=== PATIENT | male | born 1975 | race Caucasian/White ===

== ENCOUNTER 2019-01-02 00:01 | Emergency (ER) | payer BC ==
[~2019-01-02] VITALS: Ht 188 cm; Wt 81.6 kg
--- NOTE | 2019-01-02 00:15 | NUR ---
PT RECEIVED FROM HOME C/O EPIGASTRIC PN FOR 3DAYS DENIES NVD, DENIES FEVER/CHILLS, DENIES HEADACHES, ABLE TO SPEAK CLEAR AND COMPLETE SENTENCES DENIES RECENT TRAVELS OF NOTE: PT HAD THE SAME CONCERN 1MONTH AGO DENIES RECENT SURGERIES NOR TRAUMA TO THE SITE MD AT BEDSIDE FOR HX AND PHYSICAL PT NAD, BED AT LOWEST POSITION [id number] UP
[2019-01-02] MEDS ORDERED: MAG HYDROX/AL HYDROX/SIMETH 30 ML LIQUID UDC PO ONE (00:30)
[2019-01-02] MEDS ORDERED: MAG HYDROX/AL HYDROX/SIMETH 30 ML LIQUID UDC ONE (00:35)
[2019-01-02 00:37] LABS: CREATININE 0.9 mg/dL (0.6-1.3); POTASSIUM 3.9 mmol/L (3.5-5.1)
[2019-01-02 00:38] LABS: BASOPHILS # (AUTO) 0.1 K/uL (0.0-8.0); BASOPHILS % (AUTO) 0.8 % (0.0-2.0); EOSINOPHILS # (AUTO) 0.2 K/uL (0.0-0.7); EOSINOPHILS % (AUTO) 2.5 % (0.0-7.0); HEMATOCRIT 46.1 % (36.7-47.1); LYMPHOCYTES # (AUTO) 2.8 K/uL (20.0-40.0); LYMPHOCYTES % (AUTO) 34.7 % (20.5-51.5); MEAN CORPUSCULAR HGB CONC 35 g/dL (32.5-36.3); MEAN CORPUSCULAR VOLUME 89.3 fL (73.0-96.2); MONOCYTES # (AUTO) 0.5 K/uL (2.0-10.0); MONOCYTES % (AUTO) 6.8 % (0.0-11.0); NEUTROPHILS # (AUTO) 4.4 K/uL (1.8-8.9); NEUTROPHILS % (AUTO) 55.2 % (38.5-71.5); PLATELET COUNT (AUTO) 243 K/uL (152-348); RED BLOOD CELL COUNT(AUTO) 5.17 MIL/uL (4.06-5.63)
[2019-01-02 00:43] LABS: BILIRUBIN,DIRECT 0.1 mg/dL (0.0-0.2); BILIRUBIN,TOTAL 0.5 mg/dL (0.2-1.0); TOTAL PROTEIN, SERUM 7.3 g/dL (6.4-8.2)
--- NOTE | 2019-01-02 01:00 | NUR ---
ABLE TO TOLERATE PO MEDS ORDRED
--- NOTE | 2019-01-02 01:19 | NUR ---
Patient discharged to home in stable conditon. Written and verbal after care instructions given. Patient verbalizes understanding of instructions. AMBULATORY W/ STABLE GAIT ALL BELONGINGS W/ PT
[2019-01-02 02:13] VITALS: BP 120/80
== END 2019-01-02 01:19 | disposition home or self-care (01) ==
LOC: ER 00:05
DX: R10.13 Epigastric pain (principal); F17.290 Nicotine dependence, other tobacco product, uncomplicated
CPT/HCPCS: 36415; 83690; 85025; A4663

== ENCOUNTER 2019-12-04 01:07 | Emergency (ER) | payer MEDICAID, OTHER ==
[~2019-12-04] VITALS: Ht 185.4 cm; Wt 81.6 kg
--- NOTE | 2019-12-04 01:29 | NUR ---
at Bedside for MSE
[2019-12-04] MEDS ORDERED: LIDOCAINE VISCUS 2% 15 ML UDC MM ONE (01:30)
[2019-12-04] MEDS ORDERED: PANTOPRAZOLE SODIUM 40 MG TABLET.DR PO ONE ×2 (01:30→01:34)
[2019-12-04] MEDS ORDERED: MAG HYDROX/AL HYDROX/SIMETH 30 ML LIQUID UDC PO ONE (01:30)
[2019-12-04] MEDS ORDERED: MAGNESIUM HYDROXIDE 30 ML LIQUID UDC ONE (01:33)
[2019-12-04] MEDS ORDERED: LIDOCAINE VISCUS 2% 15 ML UDC ONE (01:33)
--- NOTE | 2019-12-04 01:52 | NUR ---
Patient discharged to home in stable condition. Written and verbal after care instructions given. Patient verbalizes understanding of instructions. Stressed follow up or return to ER for worsening s/s. Ambulated out of ER in steady gait.
[2019-12-04 02:10] VITALS: BP 130/57
[2019-12-04] MEDS ORDERED: VANCOMYCIN IV 200 ML ONE (02:16)
[2019-12-04] MEDS ORDERED: MUPIROCIN 2% OINT 22 GM TUBE ONE (02:16)
== END 2019-12-04 02:00 | disposition home or self-care (01) ==
LOC: ER 01:10
DX: K29.70 Gastritis, unspecified, without bleeding (principal); R03.0 Elevated blood-pressure reading, without diagnosis of hypertension
CPT/HCPCS: A4663; J3370